=== PATIENT | male | born 1970 | race Caucasian/White ===

== ENCOUNTER 2017-01-11 19:22 | Emergency (ER) | payer OTHER ==
[~2017-01-11] VITALS: Ht 175.3 cm; Wt 87.9 kg
[2017-01-11 19:25] VITALS: BP 132/75
[2017-01-11] MEDS ORDERED: ACETAMINOPHEN 500 MG TABLET PO ONE (20:00)
[2017-01-11 20:18] LABS: RAPID INFLUENZA A Negative (Negative); RAPID INFLUENZA B Negative (Negative)
[2017-01-11] MEDS ORDERED: ACETAMINOPHEN 500 MG TABLET ONE (20:57)
[2017-01-11] MEDS ORDERED: SIMV10TA3 PO (21:02)
[2017-01-11] MEDS ORDERED: LISI-167 PO (21:02)
== END 2017-01-11 21:14 | disposition home or self-care (01) ==
LOC: ED 20:56
DX: J06.9 Acute upper respiratory infection, unspecified (principal)
CPT/HCPCS: 71020; 87400; 99285

== ENCOUNTER 2017-01-13 16:58 | Emergency (ER) | payer OTHER ==
[~2017-01-13] VITALS: Ht 175.3 cm; Wt 84.5 kg
[~2017-01-13 16:58] MED LIST: LISI-167 PO; SIMV10TA3 PO
[2017-01-13 17:08] VITALS: BP 133/81
[2017-01-13] MEDS ORDERED: DEXAMETHASONE 4 MG TABLET ONE (17:31)
[2017-01-13] MEDS ORDERED: DEXAMETHASONE 4 MG TABLET PO STA (17:33)
== END 2017-01-13 17:38 | disposition home or self-care (01) ==
LOC: ED 17:32
DX: J02.0 Streptococcal pharyngitis (principal)
CPT/HCPCS: 99283

== ENCOUNTER 2020-10-28 06:55 | Outpatient (CLI) | payer OTHER ==
[~2020-10-28 06:55] MED LIST changes: +SIMV10TA18 PO; -SIMV10TA3 PO
[2020-10-28 07:25] LABS: CHLORIDE 109 mmol/L (98-107)
[2020-10-28 07:27] LABS: BASOPHILS % (AUTO) 1 % (0-1); EOSINOPHILS % (AUTO) 2 % (1-7); LYMPHOCYTES % (AUTO) 26 % (22-44); MEAN CORPUSCULAR HEMOGLOBIN 31.5 pg (27.5-34.5); MEAN PLATELET VOLUME 7.9 fL (7.4-10.4); MONOCYTES % (AUTO) 10 % (2-9); NEUTROPHILS % (AUTO) 60 % (42-75); PLATELET COUNT 274 x10^3/uL (130-400); RED BLOOD COUNT 4.99 x10^6/uL (4.38-5.82); RED CELL DISTRIBUTION WIDTH 13.7 % (9.4-14.8)
[2020-10-28 07:47] LABS: ALANINE AMINOTRANSFERASE 35 U/L (12-78); ALBUMIN 4.1 g/dL (3.4-5.0); ALKALINE PHOSPHATASE 53 U/L (45-117); ANION GAP 7 mmol/L (5-15); BILIRUBIN,TOTAL 0.9 mg/dL (0.2-1.0); CALCIUM 9.4 mg/dL (8.5-10.1); CHOL/HDL RATIO 3.6; CHOLESTEROL, TOTAL 153 mg/dL (140-239); CREATININE 1.01 mg/dL (0.7-1.3); HDL CHOL % 28 % (26-37); HDL CHOLESTEROL (DIRECT) 43 mg/dL (40-60); LDL CHOLESTEROL,CALCULATED 91 mg/dL (54-169); LDL/HDL RATIO 2.1 (0.5-3.0); TOTAL PROTEIN 7.2 g/dL (6.4-8.2); TRIGLYCERIDES 95 mg/dL (50-200); VLDL CHOLESTEROL 19 mg/dL (0-25)
== END 2020-10-28 23:59 | disposition home or self-care (01) ==
LOC: LAB 06:55
PROVIDERS: ATTEND Family Medicine
DX: Z00.01 Encounter for general adult medical examination with abnormal findings (principal)
CPT/HCPCS: 36415; 80053; 80061; 83036; 84153; 84443; 85025; 86803